=== PATIENT | male | born 1960 | race Caucasian/White ===

== ENCOUNTER 2017-08-18 03:48 | Emergency (ER) | payer OTHER ==
--- NOTE | 2017-08-18 04:06 | PDOC ---
History of Present Illness - General Stated Complaint: STOMACH PAIN Time Seen by Provider: 08/18/17 04:00 - History of Present Illness Initial Comments: 56 year old with HTN and HLD presenting with abdominal pain starting at 20:00 after dinner (beef and rice). He describes the abd pain as sharp 5-10 to 10/10 in quality non radiating and not parandial in nature. No exacerbating or relieving symptoms. Tried some antacids but did not relieve his symptoms. Denies fevers, chest pain, chills, nausea vomiting, constipation, or diarrhea. 08/18/17 07:00 Past History - Past Medical History Allergies/Adverse Reactions: Allergies Allergy/AdvReac Type Severity Reaction Status Date / Time No Known Allergies Allergy Verified 08/18/17 04:08 Home Medications: Ambulatory Orders Amlodipine Besylate [Norvasc -] 5 mg PO DAILY 06/29/13 Atenolol [Tenormin -] 50 mg PO BID 06/29/13 Atorvastatin Calcium [Lipitor] 40 mg PO DAILY 06/29/13 Advair 500Mcg/50Mcg - 1 dose IH BID 02/02/14 Nasonex 50 mcg DAILY 02/02/14 Nexium 40 mg PO DAILY 02/02/14 Q-Al 80 mcg BID 02/02/14 Asthma: Yes HTN: Yes Hypercholesterolemia: Yes - Surgical History Orthopedic Surgery: Yes (LEFT ELBOW SX X2 TENDONITIS) - Immunization History Td Vaccination: Yes TDAP Vaccination: Yes Immunization Up to Date: Yes - Suicide/Smoking/Psychosocial Hx Smoking Status: No Smoking History: Never smoked Number of Cigarettes Smoked Daily: 0 Hx Alcohol Use: Yes (RARELY) Drug/Substance Use Hx: No Substance Use Type: Alcohol Hx Substance Use Treatment: No Review of Systems - Review of Systems Constitutional: No: Chills, Diaphoresis, Fever HEENTM: No: Eye Pain, Blurred Vision Respiratory: No: Cough, Orthopnea, Shortness of Breath Cardiac (ROS): No: Chest Pain, Edema, Irregular Heart Rate : No: Burning, Dysuria, Discharge Musculoskeletal: No: Back Pain Integumentary: No: Bruising, Change in Color Neurological: No: Headache, Numbness *Physical Exam - Physical Exam General Appearance: Yes: Nourished, Appropriately Dressed, Apparent Distress, Mild Distress HEENT: positive: EOMI, BASIM, Normal ENT Inspection, Normal Voice Neck: positive: Tender, Trachea midline, Normal Thyroid, Supple. negative: Rigid Respiratory/Chest: positive: Lungs Clear, Normal Breath Sounds. negative: Chest Tender, Respiratory Distress Cardiovascular: positive: Regular Rhythm, Regular Rate Gastrointestinal/Abdominal: positive: Normal Bowel Sounds, Tender (RUQ , epigastric and LUQ pain. Most tender in RUQ and epigastric pain) Musculoskeletal: positive: Normal Inspection. negative: CVA Tenderness Integumentary: positive: Normal Color, Dry, Warm Neurologic: positive: Fully Oriented, Alert, Normal Mood/Affect, Motor Strength 03/15 ED Treatment Course - LABORATORY CBC & Chemistry Diagram: 08/18/17 04:20 08/18/17 04:20 Medical Decision Making - Medical Decision Making 56 year old male presenting with abdominal pain for the past 12 hours after dinner. Most concerning for cholelithiasis given the nature of the pain. Bedside US only demonstrating enlarged gallbladder but no obvious stones. Patietn signed out to Dr. Mcgarry in stable condition. Pending CT vs. US to rule out cholelithiasis. 08/18/17 07:11 *DC/Admit/Observation/Transfer Diagnosis at time of Disposition: Abdominal pain
[2017-08-18 04:10] VITALS: BMI 29.6
[2017-08-18] MEDS ORDERED: KETOROLAC TROMETHAMINE 30 MG/1 ML VIAL IVPUSH ONE (04:13)
[2017-08-18] MEDS ORDERED: KETOROLAC TROMETHAMINE 30 MG/1 ML VIAL ONE (04:15)
[2017-08-18] MEDS ORDERED: SODIUM CHLORIDE 1,000 ML IV STA (04:17)
[2017-08-18 04:33] LABS: BASOPHIL 0.5 % (0-2.0); EOSINOPHIL 3.8 % (0-4.5); MCH 27.2 pg (25.7-33.7); MEAN CELL VOLUME 82.4 fl (80-96); MEAN PLT VOLUME 8.1 fl (7.5-11.1); NEUTROPHILS 53.3 % (42.8-82.8); PLATELET COUNT 210 K/MM3 (134-434); RDW 14.7 % (11.9-15.9); WHITE BLOOD COUNT 6.4 K/mm3 (4.0-10.0)
[2017-08-18 04:51] LABS: INR 0.98 (0.82-1.09); PROTHROMBIN TIME (PATIENT) 10.8 SEC (9.98-11.88)
[2017-08-18 05:03] LABS: ALBUMIN 4.1 g/dl (3.4-5.0); ALK PHOS 98 U/L (45-117); ANION GAP 5 (8-16); CALCIUM 8.8 mg/dL (8.5-10.1); CO2 32 mmol/L (21-32); CREATININE 1.2 mg/dL (0.7-1.3); GLUCOSE,RANDOM 106 mg/dL (74-106); SGOT/AST 28 U/L (15-37); SGPT/ALT 44 U/L (12-78); TOT PROT 7.3 g/dl (6.4-8.2)
[2017-08-18] MEDS ORDERED: morphine CARPU-JECT 4 MG/1 ML DISP.SYRIN IVPUSH ONE (05:15)
--- NOTE | 2017-08-18 05:33 | PDOC ---
Attending Attestation - Resident Resident Name: Tita Leonard - ED Attending Attestation I have performed the following: I have examined & evaluated the patient, The case was reviewed & discussed with the resident, I agree w/resident's findings & plan, Exceptions are as noted - HPI HPI: 08/18/17 05:33 56y M hx of asthma, htn, hl, presents with complaint of RUQ pain that is sharp in nature w/o any fever/chils, nausea/vomiting, diarrhea, cp, sob. - Physicial Exam PE: 08/18/17 05:36 GENERAL: The patient is awake, alert, and fully oriented, +appears to be in pain LUNGS: Breath sounds equal, clear to auscultation bilaterally. No wheezes, no rhonchi, no rales. HEART: Regular rate and rhythm, normal S1 and S2 without murmur, rub or gallop. ABDOMEN: ruq tenderness, +smart sign, no rebound/guarding - Medical Decision Making 08/18/17 05:37 susupect possible chollithiasis vs. cholecystitis will ck labs, lfts will give toradol for pain management US vs CT 08/18/17 07:12 pt labs unremarkble pending US to evaluate gB singed out to dr. childers and yvonne to fu and reassess the pt
[2017-08-18] MEDS ORDERED: morphine CARPU-JECT 2 MG/1 ML DISP.SYRIN IVPUSH ONE (05:52)
[2017-08-18] MEDS ORDERED: morphine CARPU-JECT 10 MG/1 ML DISP.SYRIN ONE (05:55)
[2017-08-18 07:22] LABS: URINE APPEARANCE CLEAR; URINE BILIRUBIN NEGATIVE (NEGATIVE); URINE BLOOD NEGATIVE (NEGATIVE); URINE COLOR COLORLESS; URINE GLUCOSE (UA) NEGATIVE (NEGATIVE); URINE KETONE NEGATIVE (NEGATIVE); URINE NITRITE NEGATIVE (NEGATIVE); URINE PROTEIN NEGATIVE (NEGATIVE); URINE UROBILINOGEN NEGATIVE mg/dL (0.2-1.0)
--- NOTE | 2017-08-18 07:43 | PDOC ---
*Physical Exam - Vital Signs Last Vital Signs Temp Pulse Resp BP Pulse Ox 69 17 145/84 99 08/18/17 07:18 08/18/17 07:18 08/18/17 07:18 08/18/17 07:18 - Physical Exam General Appearance: Yes: Nourished, Appropriately Dressed Neck: positive: Trachea midline, Supple Respiratory/Chest: positive: Lungs Clear, Normal Breath Sounds Cardiovascular: positive: Regular Rhythm, Regular Rate, S1, S2 Gastrointestinal/Abdominal: positive: Normal Bowel Sounds, Tender (RUQ/RLQ TTP, as per patient subjectively improved.) ED Treatment Course - LABORATORY CBC & Chemistry Diagram: 08/18/17 04:20 08/18/17 04:20 - ADDITIONAL ORDERS Additional order review: Laboratory Results 08/18/17 08/18/17 08/18/17 07:15 04:20 04:20 PT with INR 10.80 INR 0.98 Sodium Potassium Chloride Carbon Dioxide Anion Gap BUN Creatinine Creat Clearance w eGFR Random Glucose Calcium Total Bilirubin AST ALT Alkaline Phosphatase Total Protein Albumin Lipase Urine Color Colorless Urine Appearance Clear Urine pH 7.0 Urine Protein Negative Urine Glucose (UA) Negative Urine Ketones Negative Urine Blood Negative Urine Nitrite Negative Urine Bilirubin Negative Urine Urobilinogen Negative Blood Type Cancelled Antibody Screen Cancelled Spec Expiration Date Cancelled 08/18/17 04:20 PT with INR INR Sodium 141 Potassium 4.3 Chloride 104 Carbon Dioxide 32 D Anion Gap 5 L BUN 11 Creatinine 1.2 Creat Clearance w eGFR > 60 Random Glucose 106 Calcium 8.8 Total Bilirubin 1.0 AST 28 D ALT 44 D Alkaline Phosphatase 98 D Total Protein 7.3 Albumin 4.1 Lipase 358 Urine Color Urine Appearance Urine pH Urine Protein Urine Glucose (UA) Urine Ketones Urine Blood Urine Nitrite Urine Bilirubin Urine Urobilinogen Blood Type Antibody Screen Spec Expiration Date 08/18/17 04:20 RBC 5.30 MCV 82.4 MCHC 33.0 RDW 14.7 D MPV 8.1 D Neutrophils % 53.3 D Lymphocytes % 26.4 D Monocytes % 16.0 H Eosinophils % 3.8 D Basophils % 0.5 D - Medications Given in the ED: ED Medications Discontinued Medications Generic Name Dose Route Start Last Admin Trade Name Freq PRN Reason Stop Dose Admin Sodium Chloride 1,000 mls @ 1,000 mls/hr 08/18/17 04:17 08/18/17 04:27 Normal Saline - IV 08/18/17 05:16 1,000 mls/hr ASDIR STA Administration Ketorolac Tromethamine 30 mg 08/18/17 04:13 08/18/17 04:27 Toradol Injection - IVPUSH 08/18/17 04:14 30 mg ONCE ONE Administration Morphine Sulfate 4 mg 08/18/17 05:15 08/18/17 05:57 Morphine Injection - IVPUSH 08/18/17 05:16 4 mg ONCE ONE Administration Morphine Sulfate 2 mg 08/18/17 05:52 08/18/17 05:57 Morphine Injection - IVPUSH 08/18/17 05:53 2 mg ONCE ONE Administration Medical Decision Making - Medical Decision Making 08/18/17 10:[address] Delroy Leonard. Patient is a 56 y.o. male who presents with abdominal pain, intermittent, cramping, localized to RUQ and perumbical area. Initial clinical suspicion for cholelithiasis, U/S shows no cholelithiasis, normal CBD, no appreciable GB wall thickening. Patient symptomatically improved , counseled on importance of follow up with previous [facility] GI doctor as well as PCP. *DC/Admit/Observation/Transfer Diagnosis at time of Disposition: Abdominal pain - Discharge Dispostion Disposition: HOME Admit: No - Referrals Referrals: Bruce Harris [Primary Care Provider] - - Patient Instructions Additional Instructions: Please follow up with your primary care doctor, Dr. Harris, tomorrow. Also, please call your check writing machine operator, Dr. Maynard, who has evaluated you on previous occasion. A copy of your CT scan has been provided to you. Please bring this to your appointment. Please return to the Emergency Department should you have any severe or concerning symptoms. - Post Discharge Activity Forms/Work/School Notes: Back to Work
[2017-08-18 10:33] VITALS: BP 139/76; PULSE 65; TEMP 98.1
[2017-08-18 14:48] LABS: URINE LEUK ESTERASE Negative (NEGATIVE)
== END 2017-08-18 10:33 | disposition home or self-care (01) ==
LOC: JER 03:48
PROC: 3E0333Z Introduction of Anti-inflammatory into Peripheral Vein, Percutaneous Approach (ICD-10-PCS; principal; 2017-08-18)
PROC: 3E033NZ Introduction of Analgesics, Hypnotics, Sedatives into Peripheral Vein, Percutaneous Approach (ICD-10-PCS; 2017-08-18)
PROC: 3E0337Z Introduction of Electrolytic and Water Balance Substance into Peripheral Vein, Percutaneous Approach (ICD-10-PCS; 2017-08-18)
DX: R10.84 Generalized abdominal pain (principal); J45.909 Unspecified asthma, uncomplicated; I10 Essential (primary) hypertension; E78.00 Pure hypercholesterolemia, unspecified
CPT/HCPCS: 36415; 76705-TC; 80053; 81003; 83690; 85025; 85610; 99284-25

== ENCOUNTER 2018-04-04 16:31 | Emergency (ER) | payer OTHER ==
[2018-04-04 16:58] VITALS: BP 151/96; PULSE 58; TEMP 98; BMI 29.6
--- NOTE | 2018-04-04 17:48 | PDOC ---
History of Present Illness - General Chief Complaint: Pain, Acute Stated Complaint: ABD PAIN Time Seen by Provider: 04/04/18 17:48 - History of Present Illness Initial Comments: 04/04/18 17:49 Mr. Arizmendi is a 57 yo male w/ pmh of HTN and HLD who presents for evaluation of epigastric pain times 1 day. He reports it started last night and has continued despite taking OTC prilosec this morning. Mr. Arizmendi characterizes this as identical to his previous incidences of abdominal pain and says it is worse with lying down. The patient denies chest pain, shortness of breath, headache and dizziness. Denies fever, chills, nausea, vomit, diarrhea and constipation. Denies dysuria, frequency, urgency and hematuria. Allergies: NKDA Past History - Past Medical History Allergies/Adverse Reactions: Allergies Allergy/AdvReac Type Severity Reaction Status Date / Time No Known Allergies Allergy Verified 08/18/17 04:08 Home Medications: Ambulatory Orders Amlodipine Besylate [Norvasc -] 5 mg PO DAILY 06/29/13 Atenolol [Tenormin -] 50 mg PO BID 06/29/13 Atorvastatin Calcium [Lipitor] 40 mg PO DAILY 06/29/13 Advair 500Mcg/50Mcg - 1 dose IH BID 02/02/14 Nasonex 50 mcg DAILY 02/02/14 Nexium 40 mg PO DAILY 02/02/14 Q-Al 80 mcg BID 02/02/14 Famotidine [Pepcid -] 20 mg PO BID #14 tablet 04/05/18 Mag Hydrox/Aluminum Hyd/Simeth [Maalox Maximum Strength Susp] 30 ml PO BID PRN # 1 oral.susp 04/05/18 Asthma: Yes COPD: No HTN: Yes Hypercholesterolemia: Yes - Surgical History Orthopedic Surgery: Yes (LEFT ELBOW SX X2 TENDONITIS) - Immunization History Td Vaccination: Yes TDAP Vaccination: Yes Immunization Up to Date: Yes - Suicide/Smoking/Psychosocial Hx Smoking Status: No Smoking History: Never smoked Have you smoked in the past 12 months: No Number of Cigarettes Smoked Daily: 0 Hx Alcohol Use: Yes (RARELY) Drug/Substance Use Hx: No Substance Use Type: Alcohol Hx Substance Use Treatment: No Review of Systems - Review of Systems Comments:: 04/04/18 18:41 GENERAL/CONSTITUTIONAL: No fever or chills. No weakness. HEAD, EYES, EARS, NOSE AND THROAT: No change in vision. No ear pain or discharge. No sore throat. CARDIOVASCULAR: No chest pain or shortness of breath RESPIRATORY: No cough, wheezing, or hemoptysis. GASTROINTESTINAL: +Midline abdominal pain. No nausea, vomiting, diarrhea or constipation. GENITOURINARY: No dysuria, frequency, or change in urination. MUSCULOSKELETAL: No joint or muscle swelling or pain. No neck or back pain. SKIN: No rash NEUROLOGIC: No headache, vertigo, loss of consciousness, or change in strength/ sensation. ENDOCRINE: No increased thirst. No abnormal weight change HEMATOLOGIC/LYMPHATIC: No anemia, easy bleeding, or history of blood clots. ALLERGIC/IMMUNOLOGIC: No hives or skin allergy. *Physical Exam - Vital Signs Last Vital Signs Temp Pulse Resp BP Pulse Ox 98.0 F 58 L 18 151/96 97 04/04/18 16:40 04/04/18 16:40 04/04/18 16:40 04/04/18 16:40 04/04/18 16:40 - Physical Exam Comments: 04/04/18 18:42 GENERAL: Awake, alert, and fully oriented, in no acute distress HEAD: No signs of trauma, normocephalic, atraumatic EYES: PERRLA, EOMI, sclera anicteric, conjunctiva clear ENT: Auricles normal inspection, hearing grossly normal, nares patent, oropharynx clear without exudates. Moist mucosa NECK: Normal ROM, supple, no lymphadenopathy, JVD, or masses LUNGS: No distress, speaks full sentences, clear to auscultation bilaterally HEART: Regular rate and rhythm, normal S1 and S2, no murmurs, rubs or gallops, peripheral pulses normal and equal bilaterally. ABDOMEN: +Epigastric TTP. Soft, normoactive bowel sounds. No guarding, no rebound. No masses EXTREMITIES: Normal inspection, Normal range of motion, no edema. No clubbing or cyanosis. NEUROLOGICAL: Cranial nerves II through XII grossly intact. Normal speech, normal gait, no focal sensorimotor deficits SKIN: Warm, Dry, normal turgor, no rashes or lesions noted. ED Treatment Course - LABORATORY CBC & Chemistry Diagram: 04/04/18 18:45 04/04/18 18:45 Medical Decision Making - Medical Decision Making 04/04/18 18:50 Mr. Arizmendi is a 57 yo male w/ pmh as described who presents for evaluation of abdominal pain. GI workup started w/ troponin / EKG included for cardiac rule- out. Patient signed out to Dr. Mendes for further evaluation. *DC/Admit/Observation/Transfer Diagnosis at time of Disposition: Abdominal pain Qualifiers: Abdominal location: unspecified location Qualified Code(s): R10.9 - Unspecified abdominal pain - Discharge Dispostion Disposition: HOME Condition at time of disposition: Stable - Prescriptions Prescriptions: Famotidine [Pepcid -] 20 mg PO BID #14 tablet Mag Hydrox/Aluminum Hyd/Simeth [Maalox Maximum Strength Susp] 30 ml PO BID PRN # 1 oral.susp PRN Reason: abdominal pain - Referrals Referrals: Calvin Bustamante MD [Staff Physician] - Bruce Harris [Primary Care Provider] - - Patient Instructions Printed Discharge Instructions: DI for Abdominal Pain-Adult Additional Instructions: Call the provided number for follow up with a GI doctor within 1 week. Follow up with your primary doctor within 3-4 days. Return to the emergency department if you have any new, worsening, or concerning symptoms. - Post Discharge Activity
[2018-04-04] MEDS ORDERED: MAG HYDROX/AL HYDROX/SIMETH 30 ML UNIT-DOSE CUP PO ONE (18:13)
[2018-04-04] MEDS ORDERED: LIDOCAINE VISCOUS 2% ORAL/TOP 20 ML UNIT-DOSE CUP MM ONE (18:13)
[2018-04-04] MEDS ORDERED: SODIUM CHLORIDE 1,000 ML IV STA (18:13)
[2018-04-04] MEDS ORDERED: FAMOTIDINE IV 20 MG/12 ML VIAL IVPB ONE (18:13)
[2018-04-04] MEDS ORDERED: LIDOCAINE VISCOUS 2% ORAL/TOP 20 ML UNIT-DOSE CUP ONE (19:05)
[2018-04-04] MEDS ORDERED: MAG HYDROX/AL HYDROX/SIMETH 30 ML UNIT-DOSE CUP ONE (19:05)
[2018-04-04] MEDS ORDERED: FAMOTIDINE 20 MG/50 ML IVPB 20 MG/50 ML MG IVPB ONE (19:05)
[2018-04-04 19:12] LABS: BASO % 0.2 % (0-2.0); EOS % 0.8 % (0-4.5); HEMATOCRIT 42.2 % (35.4-49); HEMOGLOBIN 14.1 GM/dL (11.7-16.9); LYMPH % 8.5 % (8-40); MCH 27.8 pg (25.7-33.7); MCHC 33.6 g/dl (32.0-35.9); MEAN PLT VOLUME 8.2 fl (7.5-11.1); MONO % 6.7 % (3.8-10.2); NEUT % 83.8 % (42.8-82.8); PLATELET COUNT 193 K/MM3 (134-434); RBC 5.08 M/mm3 (4.00-5.60); RDW 14.3 % (11.9-15.9); WHITE BLOOD COUNT 9.3 K/mm3 (4.0-10.0)
--- NOTE | 2018-04-04 19:23 | PDOC ---
*Physical Exam - Vital Signs Last Vital Signs Temp Pulse Resp BP Pulse Ox 98.0 F 58 L 18 151/96 97 04/04/18 16:40 04/04/18 16:40 04/04/18 16:40 04/04/18 16:40 04/04/18 16:40 - Physical Exam Comments: 04/05/18 13:05 General Appearance: Nourished. No Apparent Distress HEENT: No Pharyngeal Erythema, Tonsillar Exudate, Tonsillar Erythema Neck: No Cervical Lymphadenopathy Respiratory/Chest: Lungs Clear, Normal Breath Sounds. No Crackles, Rales, Rhonchi, Wheezing Cardiovascular: Regular Rhythm, Regular Rate. No Murmur, Gallops, Rubs Gastrointestinal/Abdominal: Normal Bowel Sounds, Soft. No Guarding, Rebound, Tenderness Musculoskeletal: No CVA Tenderness Extremity: Normal Capillary Refill Integumentary: Normal Color, Dry, Warm Neurologic: Fully Oriented, Alert, Normal Mood/Affect, Normal Response, Heart Score/ECG Review #1 ECG reviewed & interpreted by me at: 19:41 General ECG Interpretation: Sinus Rhythm, Normal Rate (59), Normal Intervals, No acute ischemic changes ED Treatment Course - LABORATORY CBC & Chemistry Diagram: 04/04/18 18:45 04/04/18 18:45 - ADDITIONAL ORDERS Additional order review: 04/04/18 18:45 RBC 5.08 MCV 83.0 MCHC 33.6 RDW 14.3 MPV 8.2 Neutrophils % 83.8 H D Lymphocytes % 8.5 D Monocytes % 6.7 Eosinophils % 0.8 Basophils % 0.2 Progress Note - Progress Note Progress Note: The patient is a 57 year old male who presents for evaluation of upper abdominal pain. The patient has been medicated with pepcid and is pending lab results and gallbladder US and reassessment. Medical Decision Making - Medical Decision Making 04/04/18 22:06 CBC, cmp, lipase are unremarkable. Gallbladder US is unremarkable as read by our radiologist. The patient is requesting discharge at this time. We are comfortable discharging the patient home with primary care provider and gi follow up. We discussed the results, plan, and return precautions with the patient who voiced understanding and is agreeable with the plan. *DC/Admit/Observation/Transfer Diagnosis at time of Disposition: Abdominal pain Qualifiers: Abdominal location: unspecified location Qualified Code(s): R10.9 - Unspecified abdominal pain - Discharge Dispostion Disposition: HOME Condition at time of disposition: Stable - Prescriptions Prescriptions: Famotidine [Pepcid -] 20 mg PO BID #14 tablet Mag Hydrox/Aluminum Hyd/Simeth [Maalox Maximum Strength Susp] 30 ml PO BID PRN # 1 oral.susp PRN Reason: abdominal pain - Referrals Referrals: Calvin Bustamante MD [Staff Physician] - Bruce Harris [Primary Care Provider] - - Patient Instructions Printed Discharge Instructions: DI for Abdominal Pain-Adult Additional Instructions: Call the provided number for follow up with a GI doctor within 1 week. Follow up with your primary doctor within 3-4 days. Return to the emergency department if you have any new, worsening, or concerning symptoms. - Post Discharge Activity
[2018-04-04 19:36] LABS: ALBUMIN 4.3 g/dl (3.4-5.0); ALK PHOS 86 U/L (45-117); ANION GAP 6 (8-16); BILIRUBIN,TOTAL 1.1 mg/dL (0.2-1.0); BLOOD UREA NITROGEN 12 mg/dL (7-18); CALCIUM 8.5 mg/dL (8.5-10.1); CHLORIDE 104 mmol/L (98-107); CO2 30 mmol/L (21-32); CREATININE 0.9 mg/dL (0.7-1.3); GLUCOSE,RANDOM 114 mg/dL (74-106); POTASSIUM 3.9 mmol/L (3.5-5.1); SGOT/AST 26 U/L (15-37); SGPT/ALT 43 U/L (12-78); SODIUM 140 mmol/L (136-145); TOT PROT 7.1 g/dl (6.4-8.2)
--- NOTE | 2018-04-04 19:41 | PDOC ---
Attending Attestation - Resident Resident Name: Elio Simons - ED Attending Attestation I have performed the following: I have examined & evaluated the patient, The case was reviewed & discussed with the resident, I agree w/resident's findings & plan, Exceptions are as noted - HPI HPI: 04/04/18 19:39 The patient is a 57 year old male with a significant past medical history of hypertension, hyperlipidemia, and asthma who presents to the emergency department for evaluation of mid epigastric pain. The patient reports a 1 day history of mid epigastric pain radiating to the RUQ. The patient reports moderate mid epigastric pain beginning yesterday after eating fish and rice for dinner. He describes the pain is exacerbated while laying down. He reports taking prilosec with mild alleviation. Of note, he admits to being seen in the ED for similar symptoms in 08/[address] scan yielding negative results. The patient denies chest pain, shortness of breath, headache, and dizziness. Denies dark or bloody stools, denies excessive NSAID use Denies fevers, chills, nausea, vomiting, diarrhea, constipation, and sick contact. Denies dysuria, frequency, urgency, and hematuria. Allergies: NKA Past surgical history: Orthopedic (back and elbow) Social history: Reported alcohol consumption(occasional beer). No reported cigarette or drug use. PCP: Dr. Bruce Harris ([phone]) - Physicial Exam PE: 04/04/18 19:40 GENERAL: Awake, alert, and fully oriented, in no acute distress HEAD: No signs of trauma EYES: PERRLA, EOMI, sclera anicteric, conjunctiva clear ENT: Auricles normal inspection, hearing grossly normal, nares patent, oropharynx clear without exudates. Moist mucosa NECK: Normal ROM, supple, no lymphadenopathy, JVD, or masses LUNGS: Breath sounds equal, clear to auscultation bilaterally. No wheezes, and no crackles HEART: Regular rate and rhythm, normal S1 and S2, no murmurs, rubs or gallops ABDOMEN: Soft, epigastric and RUQ ttp, normoactive bowel sounds. No guarding, no rebound. No masses. No CVAT EXTREMITIES: Normal range of motion, no edema. No clubbing or cyanosis. No cords, erythema, or tenderness BACK: No midline spinal tenderness in cervical/thoracic/lumbar region NEUROLOGICAL: Normal speech, cranial nerves intact, negative pronator drift, 5/ 5 strength in all 4 extremities, normal sensation to light touch in all 4 extremities, normal cerebellar exam, normal gait, normal reflexes and tone SKIN: Warm, Dry, normal turgor, no rashes or lesions noted. - Medical Decision Making 04/04/18 19:43 57-year-old male presents to the emergency department with epigastric and right upper quadrant pain and tenderness to palpation. Vitals unremarkable. EKG is nonischemic. Differential includes but is not limited to gastritis versus cholecystitis versus pancreatitis. ACS is a consideration, but patient is low risk with normal EKG. Trop thus far negative. Will check labs, US, treat pain and reassess 04/04/18 23:56 Labs and US wnl Pt reported improvement with pepcid, maalox, viscous lido but states pain returned although a bit milder Likely gastritis Pt offered CTAP for recurrent pain, but he declines as he feels better and would like a prescription for the medications he got in the ED Will refer pt to GI as he states he has frequent epigastric pain, almost daily after meals Pt advised to return for any new, worsening or concerning symptoms I discussed the physical exam findings, ancillary test results and final diagnoses with the patient. I answered all of the patient's questions. The patient was satisfied with the care received and felt comfortable with the discharge plan and treatment plan. The patient will call their primary care physician within 24 hours to arrange follow-up and will return to the Emergency Department with any new, persistent or worsening symptoms. Discharge Disposition - Diagnosis Abdominal pain - Discharge Dispostion Disposition: HOME Condition at time of disposition: Stable Last Admission D/C Date: 05/03/10 Decision to Admit order: No - Referrals Referrals: Bruce Harris [Primary Care Provider] - Calvin Bustamante MD [Staff Physician] - - Patient Instructions Printed Discharge Instructions: DI for Abdominal Pain-Adult Additional Instructions: Call the provided number for follow up with a GI doctor within 1 week. Follow up with your primary doctor within 3-4 days. Return to the emergency department if you have any new, worsening, or concerning symptoms. - Post Discharge Activity Heart Score/ECG Review #1 04/04/18 19:41 Twelve-lead EKG was performed and reviewed by me. Sinus bradycardia, rate 59. Normal axis and intervals. No ST elevations or T-wave inversions.
[2018-04-04] MEDS ORDERED: MAG HYDROX/AL HYDROX/SIMETH -MYLANTA- ORAL SUSPENSION PO ONE (23:55)
[2018-04-05] MEDS ORDERED: MAG HYDROX/AL HYDROX/SIMETH 30 ML UNIT-DOSE CUP ONE (00:01)
--- NOTE | 2018-04-05 08:45 | EKG ---
Test Reason : Blood Pressure : / mmHG Vent. Rate : 059 BPM Atrial Rate : 059 BPM P-R Int : 200 ms QRS Dur : 096 ms QT Int : 432 ms P-R-T Axes : 031 033 037 degrees QTc Int : 427 ms SINUS BRADYCARDIA OTHERWISE NORMAL ECG WHEN COMPARED WITH ECG OF 29-JUN-2013 06:36, VENT. RATE HAS DECREASED BY 47 BPM Confirmed by HAWA BILLINGS MD ([id number]) on 04/05/2018 8:44:49 AM Referred By: Confirmed By:HAWA BILLINGS MD
== END 2018-04-05 00:08 | disposition home or self-care (01) ==
LOC: JER 16:31
PROC: 3E033GC Introduction of Other Therapeutic Substance into Peripheral Vein, Percutaneous Approach (ICD-10-PCS; principal; 2018-04-04)
DX: R10.13 Epigastric pain (principal); I10 Essential (primary) hypertension; E78.00 Pure hypercholesterolemia, unspecified; J45.909 Unspecified asthma, uncomplicated
CPT/HCPCS: 36415; 76705-TC; 80053; 83690; 84484; 85025; 93005; 93010; 99282-25; J7030